=== PATIENT | male | born 1940 | race Caucasian/White ===

== ENCOUNTER 2016-12-10 13:36 | Emergency (ER) | payer OTHER ==
[~2016-12-10] VITALS: Ht 172.7 cm; Wt 68.6 kg
[~2016-12-10 13:36] MED LIST: LISI5TAB3 PO
[2016-12-10 13:44] VITALS: TEMP 36.7; Ht 172.7 cm; Wt 68.6 kg
--- NOTE | 2016-12-10 14:05 | EMERGENCY ROOM VISIT NOTE ---
ED Visit Note First contact with patient: 13:50 I have seen and examined this patient with Krishna Albrecht and generally agree with the treatment plan as discussed. Problem List Medical Problems: (1) Prostate disease Status: Chronic Current/Historical Medications Scheduled Lisinopril (Zestril), 5 MG PO DAILY Allergies Coded Allergies: No Known Allergies (Unverified , 04/22/16) Vital Signs Date Time Temp Pulse Resp B/P (MAP) Pulse Ox O2 Delivery O2 Flow Rate FiO2 12/10/16 13:44 36.7 71 20 162/91 95 Room Air Departure Information Referrals Shayy Jenkins M.D. (PCP) Patient Instructions My [facility]
--- NOTE | 2016-12-10 14:18 | DIAGNOSTIC IMAGING REPORT ---
RIGHT THIRD FINGER 3 VIEWS CLINICAL HISTORY: Finger pain COMPARISON: None. DISCUSSION: No fractures or dislocations are visualized. There are no erosive or destructive changes. IMPRESSION: No fractures, dislocations, or erosive/destructive lesions are visualized Electronically signed by: Sandeep Judge M.D. 12/10/2016 2:17 PM Dictated Date/Time: 12/10/2016 2:16 PM
--- NOTE | 2016-12-10 14:30 | EMERGENCY ROOM VISIT NOTE ---
History First contact with patient: 13:50 Chief Complaint: HAND PAIN/INJURY Stated Complaint: PAIN IN KNUCKLE - RT MIDDLE FINGER History of Present Illness The patient is a 76 year old male who presents to the Emergency Room via private vehicle with complaints of "pain and knuckle, right middle finger". The patient states that about 3 weeks ago, he was lifting a jug of milk, a when his right third digit at the level of the knuckle. Experiencing dislocation of the tendon. The patient states his been doing this periodically since that time. He notes that yesterday and today the pain has worsened and now there is erythema and edema. He rates the pain as a 1/10. Review of Systems A complete 6-point Review of Systems was discussed with the patient, with pertinent positives and negatives listed in the History of Present Illness. All remaining Review of Systems questions can be considered negative unless otherwise specified. Past Medical/Surgical History Medical Problems: (1) Prostate disease Family History No pertinent family history Social History Smoking Status: Never Smoker Marital Status: Housing Status: lives with family Current/Historical Medications No Active Prescriptions or Reported Meds Physical Exam Vital Signs Date Time Temp Pulse Resp B/P (MAP) Pulse Ox O2 Delivery O2 Flow Rate FiO2 12/10/16 15:11 88 20 136/80 99 12/10/16 13:44 36.7 71 20 162/91 95 Room Air Physical Exam VITAL SIGNS - Vital signs and nursing notes were reviewed. Stable. GENERAL - 76-year-old male appearing his stated age who is in no acute distress. Communicates well with provider and answers questions appropriately. SKIN - Without rashes. There is slight erythema overlying the dorsal aspect of the right third MCP joint. EXTREMITIES - No clubbing or peripheral cyanosis. No pretibial edema present. He is neurovascularly intact in this region. Upon Flexion of the patient's right third digit at the location of the MCP joint, the tendon appears to roll over the side of the knuckle. +5/5 strength noted in UE/LE bilaterally. Medical Decision & Procedures ER Provider Diagnostic Interpretation: RIGHT THIRD FINGER 3 VIEWS CLINICAL HISTORY: Finger pain COMPARISON: None. DISCUSSION: No fractures or dislocations are visualized. There are no erosive or destructive changes. IMPRESSION: No fractures, dislocations, or erosive/destructive lesions are visualized Electronically signed by: Sandeep Judge M.D. 12/10/2016 2:17 PM Dictated Date/Time: 12/10/2016 2:16 PM Medical Decision Patient was seen and evaluated as above. He presents to us today with right hand pain status post lifting a milk 3 weeks ago. It appears that his right third digit at the location of the MCP joint has a tendon will dislocate with extreme flexion. There is no evidence of infection. He is afebrile. He was fitted with a Ortho-Glass volar splint that protects and spans the right third MCP joint. He appears stable for discharge. He was also evaluated by the attending physician. He was given the phone number to follow-up with Dr. Morales the on-call orthopedic surgeon. He was educated upon worrisome symptoms which to return, had questions about discharge, and was discharged home in good condition. In the evaluation and treatment of this patient the following differential diagnoses were entertained: Dislocation, fracture, tendon injury, among others. Medication Reconcilliation Current Medication List: was personally reviewed by tx Blood Pressure Screening Patient's blood pressure: Elevated blood pressure Blood pressure disposition: Elevated BP felt to be situational Impression Primary Impression: right 3rd mcp joint pain Departure Information Dispostion Home / Self-Care Condition GOOD Prescriptions No Active Prescriptions or Reported Meds Referrals Shayy Jenkins M.D. (PCP) Jack Morales M.D. Patient Instructions My [facility] Additional Instructions You have been treated in the Emergency Department for 3rd knuckle Pain. If this is a recent injury (<24 hrs), ice can be applied to the area of pain for the first 3 days to help decrease pain and inflammation. You have been provided the number for an Orthopaedic Surgeon. You should call this number as soon as possible to establish a follow-up visit from today's Emergency Department visit. Keep the brace/splint in place until evaluated by Orthopedics. Return to the Emergency Department if your current symptoms worsen despite treatment course outlined above, or if you develop any of the following symptoms : intractable pain despite aforementioned treatment course or new onset of numbness or tingling of the fingers. Please return to emergency department with any new/concerning symptoms.
[2016-12-10 15:11] VITALS: BP 136/80; PULSE 88; O2SAT 99
== END 2016-12-10 15:13 | disposition home or self-care (01) ==
LOC: C.EDB 13:37 → C.EDD 15:13
DX: M79.644 Pain in right finger(s) (principal)

== ENCOUNTER 2020-02-28 08:32 | Observation (INO) ==
--- OUTSIDE RECORDS SUMMARY | 2020-02-28 08:35 | External Medical Summary | Continuity of Care Document ---
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) Hyperlipidemia (272.4) (E78.5) Hypertension (401.9) (I10) Allergies and Adverse Reactions No Known Drug Allergies (Allergy) Medications Medications not documented Procedures History of Biopsy Skin Status: Completed Immunizations Immunizations not documented Family History Mother No pertinent family history (V49.89) (Z78.9) Status: Active Father No pertinent family history (V49.89) (Z78.9) Status: Active Social History - Smoking Status Never smoked tobacco Plan of Treatment Planned Observations Planned Goals not documented Results No Known Results Results not documented Encounters Appointment; Med SC[facility], Nursing Station 03-Jan-2018 15:30 Encounter Diagnosis: Problem not documented
--- OUTSIDE RECORDS SUMMARY | 2020-02-28 08:36 | External Medical Summary | Continuity of Care Document ---
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
[2020-02-28] MEDS ORDERED: AMPICILLIN/SULBACTAM SOD 3,000 MG in 0.9 % SODIUM CHLORIDE 100 ML IV STA (09:01)
--- NOTE | 2020-02-28 09:07 | Emergency Department Note ---
History of Present Illness General Chief complaint: Hand Injury/Pain Stated complaint: HIT TOP OF RT HAND, SWELLING/REDNESS Time Seen by Provider: 02/28/20 08:50 History of Present Illness Provider complaint: Right hand pain Onset (ago): day(s) 4 Location: upper extremity and right Radiation: non-radiation Severity: moderate Pain Consistency: + constant Maximum Pain Intensity: 8 Current Pain Intensity: 9 Quality: + other (Throbbing) Relieved By: + immobilization Exacerbated By: + movement Associated symptoms: + rash; no fever/chills and no weakness 79-year-old male presents emergency department for right hand pain. Patient states that on Sunday evening he was playing with his dog with a Frisbee and accidentally hit his dog in the mouth with his right hand while throwing a Frisbee. He states he started bleeding profusely from his hand and he washed it out. He states over the last 3 days he had noticed increasing pain, swelling, and redness. He states the dog's immunizations are up-to-date. No fevers. Patient is not diabetic. Pain is worsened with movement and better when he keeps it still. Patient states his tetanus is up-to-date. Home Medications Home Medications Medication Instructions Recorded Confirmed Type No Known Home Medications 02/28/20 02/28/20 History Allergies Allergy/AdvReac Type Severity Reaction Status Date / Time No Known Allergies Allergy Unverified 02/28/20 09:26 Past Med/Surg History Medical History (Updated 02/28/20 @ 11:44 by Raffi Keith) Colonic diverticular abscess Diverticulitis No pertinent family history Prostate disease Surgical History (Updated 02/28/20 @ 11:34 by Dillon Morley PA-C) H/O abdominal surgery H/O meniscectomy of right knee Social History (Updated 02/28/20 @ 11:37 by Dillon Morley PA-C) Smoking Status: Former smoker Hx Alcohol Use: No Hx Substance Use: No Preferred Language: Romansh Communication Ability: Effective 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 Required: No current occupational status: retired 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 [employer] Feels Safe at Home: Yes Seatbelt Use: always Review of Systems A total of 10 systems reviewed and were otherwise negative Physical Exam Vital Signs Vital Signs - 24 hr 10/10/20 08:43 02/28/20 10:01 Temperature 37 C Temperature Source Oral Pulse Rate 71 Pulse Rate [Left Finger] 64 Pulse Rhythm Regular Pulse Strength Normal Respiratory Rate 18 18 Respiratory Effort / Characteristics Non-Labored Spontaneous Respiratory Depth Normal Respiratory Pattern Regular Blood Pressure 195/99 H Blood Pressure [Left Arm] 159/92 H Blood Pressure Mean 131 Blood Pressure Mean [Left Arm] 114 Blood Pressure Position Sitting Pulse Oximetry 97 97 Oxygen Delivery Method Room Air Room Air Sepsis Recent Fever Within 48 Hours No Sepsis New/Unexplained Change in Mental Status No Sepsis Action Taken by Nursing No Action Required Physical Exam GENERAL: He is oriented to person, place, and time. He appears well-developed and well-nourished. He does not appear distressed. HENT: Exam performed. - Head: Normocephalic and atraumatic. - Right Ear: External ear normal. No mastoid tenderness. - Left Ear: External ear normal. No mastoid tenderness. - Mouth/Throat: The oropharynx is clear and moist. No trismus in the jaw. No dental abscesses or uvula swelling. No oropharyngeal exudate or tonsillar abscesses. EYES: Conjunctivae and EOM are normal. Pupils are equal, round, and reactive to light. Right eye exhibits no discharge. Left eye exhibits no discharge. No scler al icterus. NECK: Normal range of motion. Neck supple. No JVD present. No spinous process tenderness present. No carotid bruit present. No rigidity. No tracheal deviation and normal range of motion present. No Brudzinski's sign and no Kernig's sign noted. CV: Normal rate, regular rhythm, normal heart sounds and intact distal pulses. There is no peripheral edema. Palpable radial pulses bue. PULM/CHEST: Effort normal and breath sounds normal. No respiratory distress. No stridor. He has no wheezes. He has no rales. - Chest Wall: He exhibits no tenderness. ABD: The abdomen is soft. Bowel sounds are normal. He has no distension. No mass is present. There is no tenderness. There is no rebound, no guarding, no Saldivar's sign and no tenderness at McBurney's point. Rovsig negative. MUSC/SKEL: Right upper extremity: Abrasions over the dorsum of the right hand and middle finger. No purulent discharge or bleeding. No fluctuant areas. Swelling over the dorsum of the right hand. Erythema and warmth over the dorsum of the right hand. Pain with extension of the right wrist. No pain over the flexor tendons. No pain with flexion of the wrist. Motor and sensation intact in the median, r adial, and ulnar nerve distribution. Palpable radial and ulnar pulse. Capillary refill less than 2 seconds. Compartments soft. Left upper extremity: Within normal limits. LYMPH: No cervical adenopathy. NEURO: He is alert and oriented to person, place, and time. He has normal strength. No cranial nerve deficit or sensory deficit. Coordination and gait normal. GCS eye subscore is 4. GCS verbal subscore is 5. GCS motor subscore is 6. Cerebellar tests wnl. SKIN: Skin is warm and dry. He is not diaphoretic. PSYCH: He has a normal mood and affect. Behavior is normal. Judgment and thought content normal. Male Course Course 0850: The patient was evaluated in room A10. A complete history and physical exam was performed. 1009: Vital signs stable. Patient has a white count of 13.46. Discussed with hand surgery on-call Dr. Carr who recommends that the patient be admitted to the hospital service and he will evaluate the patient as a consult. First dose of Unasyn given. Administered Medications Discontinued Medications Ampicillin Sodium/Sulbactam Sodium 3,000 mg/ Sodium Chloride 108 mls @ 200 mls/hr IV NOW STA; Protocol Stop: 02/28/20 09:33 Last Infusion: 02/28/20 10:41 Dose: 0 mls/hr Documented by: [id number] Admin: 02/28/20 09:40 Dose: 200 mls/hr Documented by: [id number] Ketorolac Tromethamine (Ketorolac Tromethamine 15 Mg/Ml Vial) 15 mg IV NOW STA Stop: 02/28/20 09:41 Last Admin: 02/28/20 09:44 Dose: 15 mg Documented by: [id number] Medical Decision Making Laboratory Data Result diagrams: 02/28/20 09:42 02/28/20 09:42 Lab Results 02/28/20 02/28/20 Range/Units 09:42 09:42 WBC 13.46 H (4.8-10.8) K/uL RBC 5.67 (4.7-6.1) M/uL Hgb 16.7 (14.0-18.0) g/dL Hct 50.5 (42-52) % MCV 89.1 (80-100) fL MCH 29.5 (25-34) pg MCHC 33.1 (32-36) g/dL RDW Std Deviation 46.0 (36.4-46.3) fL RDW Coeff of Ana 14.0 (11.5-14.5) % Plt Count 182 (130-400) K/uL MPV 10.5 H (7.4-10.4) fL Immature Gran % (Auto) 0.2 % Neut % (Auto) 79.6 % Lymph % (Auto) 7.1 % [place] % (Auto) 12.4 % Eos % (Auto) 0.5 % Baso % (Auto) 0.2 % Neut # (Auto) 10.70 H (1.4-6.5) K/uL Lymph # (Auto) 0.96 L (1.2-3.4) K/uL [place] # (Auto) 1.67 H (0.11-0.59) K/uL Eos # (Auto) 0.07 (0-0.5) K/uL Baso # (Auto) 0.03 (0-0.2) K/uL Immature Gran # (Auto) 0.03 H (0.00-0.02) K/uL Sodium 141 (136-145) mmol/L Potassium 4.5 (3.5-5.1) mmol/L Chloride 109 H (98-107) mmol/L Carbon Dioxide 29 (21-32) mmol/L Anion Gap 3.0 (3-11) BUN 20 H (7-18) mg/dl Creatinine 1.50 H (0.6-1.4) mg/dl Est Cr Clr Drug Dosing 37.4 ml/min Est GFR ( Amer) 49.9 Est GFR (Non-Af Amer) 43.0 BUN/Creatinine Ratio 13.4 (10-20) Glucose 111 H (70-99) mg/dl Calcium 9.1 (8.5-10.1) mg/dl Imaging Data Radiologist's Impression: XR hand RT min 3V routine CLINICAL HISTORY: bit by dog pain over dorsum of hand COMPARISON: Right third finger radiographs December 10, 2016. FINDINGS: No acute fracture is noted. Alignment of the right hand is anatomic. There is dorsal soft tissue swelling overlying the intercarpal. 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 IMPRESSION: 1. No acute fracture. 2. Dorsal right hand soft tissue swelling. ACT 112: Negative or not required by law. Electronically signed by: Nam Amezcua M.D. 02/28/2020 9:35 AM Dictated: 02/28/20932 Transcribed: 02/28/20932 [facility] Narrative Vital signs stable. Patient has a white count of 13.46. Discussed with hand surgery on-call Dr. Carr who recommends that the patient be admitted to the hospital service and he will evaluate the patient as a consult. First dose of Unasyn given. Impression & Plan Cellulitis of right hand Discharge Plan Visit Data Chief Complaint: Hand Injury/Pain Stated Complaint: HIT TOP OF RT HAND, SWELLING/REDNESS ED Provider: Raffi Keith Discharge Problem: Cellulitis of right hand Patient Disposition: Being Evaluated by Hospitalist Forms Stand Alone Forms: [employer] Prescriptions Prescriptions: No Action No Known Home Medications RF: 0 Referrals Referrals: Shayy Jenkins [Primary Care Provider] -
--- NOTE | 2020-02-28 09:36 | XRay Report ---
XR hand RT min 3V routine CLINICAL HISTORY: bit by dog pain over dorsum of hand COMPARISON: Right third finger radiographs December 10, 2016. FINDINGS: No acute fracture is noted. Alignment of the right hand is anatomic. There is dorsal soft tissue swelling overlying the intercarpal. 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 IMPRESSION: 1. No acute fracture. 2. Dorsal right hand soft tissue swelling. ACT 112: Negative or not required by law. Electronically signed by: Nam Amezcua M.D. 02/28/2020 9:35 AM
[2020-02-28] MEDS ORDERED: KETOROLAC TROMETHAMINE 15 MG/ML VIAL IV STA (09:40)
[2020-02-28 09:53] LABS: Basophils # (auto) 0.03 K/uL (0-0.2); Basophils % (auto) 0.2 %; Eosinophils # (auto) 0.07 K/uL (0-0.5); Eosinophils % (auto) 0.5 %; Hematocrit (blood only) 50.5 % (42-52); Hemoglobin 16.7 g/dL (14.0-18.0); Immature Granulocytes # (auto) 0.03 K/uL (0.00-0.02); Immature Granulocytes % (auto) 0.2 %; Lymphocytes # (auto) 0.96 K/uL (1.2-3.4); Lymphocytes % (auto) 7.1 %; Mean Corpuscular Hemoglobin 29.5 pg (25-34); Mean Corpuscular Hgb Conc 33.1 g/dL (32-36); Mean Corpuscular Volume 89.1 fL (80-100); Mean Platelet Volume 10.5 fL (7.4-10.4); Monocytes # (auto) 1.67 K/uL (0.11-0.59); Monocytes % (auto) 12.4 %; Neutrophils % (auto) 79.6 %; Platelet Count 182 K/uL (130-400); Red Blood Count 5.67 M/uL (4.7-6.1); White Blood Count 13.46 K/uL (4.8-10.8)
[2020-02-28 10:14] LABS: BUN Creatinine Ratio 13.4 (10-20); Calcium 9.1 mg/dl (8.5-10.1); Creatinine Clr Calc Pharmacy 37.4 ml/min; Est GFR (African American) 49.9; Potassium 4.5 mmol/L (3.5-5.1)
[2020-02-28] MEDS ORDERED: traMADol HCL 50 MG TABLET PO PRN (11:12)
[2020-02-28] MEDS ORDERED: oxyCODONE HCL IR 5 MG TAB (IMMEDIATE RELEASE) PO PRN (11:14)
[2020-02-28] MEDS ORDERED: LORazepam 1 MG TAB PO PRN (11:15)
[2020-02-28] MEDS ORDERED: MAGNESIUM HYDROXIDE SUSP 30 ML UDC PO PRN (11:16)
[2020-02-28] MEDS ORDERED: CALCIUM CARBONATE 500 MG CHEWABLE TAB PO PRN (11:17)
[2020-02-28] MEDS ORDERED: ACETAMINOPHEN 500 MG TAB PO PRN (11:29)
[2020-02-28] MEDS ORDERED: hydrALAZINE HCL 20 MG/ML VIAL IV PRN (11:43)
--- NOTE | 2020-02-28 11:43 | History & Physical Report ---
Date of Service February 28, 2020 Assessment & Plan (1) Cellulitis of right hand: Mr. Rodriguez is an 79 year old male with a history of Osteoarthritis, Diverticulitis with Perforation s/p Partial Colectomy in the past, and BPH who presents to the ER with a painful, swollen right hand which began last evening. Patient was playing with his dog on the evening of 02/25/2020 and when he went to throw the frisbee he accidently hit his dog in the mouth resulting in essentially a bite wound. On the evening of 02/27/2020 his right hand became more swollen and erythematous. The erythema then began to extend on his dorsal right hand and up the forearm, and became more painful. He denies any fever or chills but his WBC count is elevated at 13.46 K/uL. -- Admit to Med-Surg floor. -- X-rays of affected extremity have been completed. -- Received Unasyn 3 g IV in the ER. -- Continue IV Unasyn 3 g Q6H. -- IV NSS with 20 mEq KCL at 15 ml/hr. -- Daily CBC with diff. -- Daily BMP. -- If necessary will consult Dr. Carr. (2) Dog bite of extremity: -- Not bitten by dog, accidently hit dog in the mouth with right while throwing the frisbee. -- Dog is up to date on its shots. (3) Elevated BP without diagnosis of hypertension: -- Routine monitoring of vital signs. -- IV Hydralazine 10 mg as needed for SBP > 160 mmHg. History of Present Illness Mr. Rodriguez is an 79 year old male with a history of Osteoarthritis, Diverticulitis with Perforation s/p Partial Colectomy in the past, and BPH who presents to the ER with a painful, swollen right hand which began last evening. Patient was playing with his dog on the evening of 02/25/2020 and when he went to throw the frisbee he accidently hit his dog in the mouth resulting in essentially a bite wound. On the evening of 02/27/2020 his right hand became more swollen and erythematous. The erythema then began to extend on his dorsal right hand and up the forearm, and became more painful. He denies any fever or chills but his WBC count is elevated at 13.46 K/uL. Patient received at dose of Unasyn 3 g and Toradol 15 mg in the ER. X-rays of the right hand are negative for fracture, but soft tissue edema of the dorsal right hand is present. His dog is up to date with its shots, and is NOT rabid. Primary Care Provider: Shayy Jenkins Allergies Allergy/AdvReac Type Severity Reaction Status Date / Time No Known Allergies Allergy Unverified 02/28/20 09:26 Home Medications Home Medications Medication Instructions Recorded Confirmed Type No Known Home Medications 02/28/20 02/28/20 History amoxicillin-pot clavulanate 1 tab PO BID #20 tab 02/29/20 Rx [Augmentin] Past Med/Surg History Medical History Colonic diverticular abscess Diverticulitis No pertinent family history Prostate disease Surgical History H/O abdominal surgery H/O meniscectomy of right knee Social History Smoking Status: Never smoker Hx Alcohol Use: Yes Hx Substance Use: No Preferred Language: Irish Communication Ability: Effective Agricultural Mechanic Required: No Current Living Situation: Spouse current occupational status: retired 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 HEENT: Head is atraumatic, normocephalic. EOM's intact. Nasal septal deviation is present. No perioral cyanosis. NECK: No JVD. JVP is at the level of the clavicle sitting upright. Carotid upstrokes are + 2 bilaterally. No bruits are noted. CHEST/LUNGS: Mildly diminished breath sounds throughout but clear to auscultation. No wheezes, rales, or crackles. CVS: S1 and S2 are regular without obvious murmurs, gallops, or rubs. PMI is nondisplaced. No lifts, heaves, or thrills. No abdominal aortic or renal bruits. ABDOMINAL EXAM: Bowel sounds are present. No masses, organomegaly, or tenderness. EXTREMITIES: Dorsal right hand is erythematous and edematous, open area on the right digiti annularis. Erythema extends onto dorsal right forearm, and has been outlined in marker by ER staff. Right wrist, elbow, and fingers with full AROM. No clubbing or cyanosis. Intact posterior tibial and radial pulses bilaterally. NEUROLOGIC EXAM: Patient is awake, alert, and oriented. Pleasant and cooperative. Answers questions appropriately. Speech is clear. Normal movement in all 4 extremities. Results & Data Results & Data ([facility]) Vital Signs (Past 12 Hours) Vital Signs Temp Pulse Pulse Resp BP BP Pulse Ox 02/28/20 10:01 64 18 159/92 H 97 02/28/20 08:43 37 C 71 18 195/99 H 97 Laboratory Results Laboratory Results - last 24 hr 02/28/20 02/28/20 09:42 09:42 WBC 13.46 H RBC 5.67 Hgb 16.7 Hct 50.5 MCV 89.1 MCH 29.5 MCHC 33.1 RDW Std Deviation 46.0 RDW Coeff of Ana 14.0 Plt Count 182 MPV 10.5 H Immature Gran % (Auto) 0.2 Neut % (Auto) 79.6 Lymph % (Auto) 7.1 Cole % (Auto) 12.4 Eos % (Auto) 0.5 Baso % (Auto) 0.2 Neut # (Auto) 10.70 H Lymph # (Auto) 0.96 L Cole # (Auto) 1.67 H Eos # (Auto) 0.07 Baso # (Auto) 0.03 Immature Gran # (Auto) 0.03 H Sodium 141 Potassium 4.5 Chloride 109 H Carbon Dioxide 29 Anion Gap 3.0 BUN 20 H Creatinine 1.50 H Est Cr Clr Drug Dosing 37.4 Est GFR ( Amer) 49.9 Est GFR (Non-Af Amer) 43.0 BUN/Creatinine Ratio 13.4 Glucose 111 H Calcium 9.1 Medications Administered Active Medications Generic Name Dose Route Start Last Admin Trade Name Freq PRN Reason Stop Dose Admin Acetaminophen 1,000 mg 02/28/20 11:29 Acetaminophen 500 Mg Tab PO 03/29/20 11:28 Q8H PRN Fever or headache Calcium Carbonate 1,500 mg 02/28/20 11:17 Calcium Carbonate 500 Mg Chewable Tab PO 03/29/20 11:16 Q4H PRN Indigestion Potassium Chloride/Sodium Chloride 20 meq in 1,000 mls @ 0 mls/hr 02/28/20 11:15 Normal Saline W/20 Meq Kcl IV 03/29/20 11:14 .Q0M LUCERO Protocol KVO Ampicillin Sodium/Sulbactam 108 mls @ 200 mls/hr 02/28/20 11:15 Sodium 3,000 mg/ Sodium IV 03/06/20 11:14 Chloride Q6H LUCERO Protocol Lorazepam 1 mg 02/28/20 11:15 Lorazepam 1 Mg Tab PO 03/29/20 11:14 Q8H PRN Agitation or sleep Magnesium Hydroxide 30 ml 02/28/20 11:16 Magnesium Hydroxide Susp 30 Ml Udc PO 03/29/20 11:15 Q6H PRN Constipation Ondansetron HCl 4 mg 02/28/20 11:30 Ondansetron Inj 2 Mg/Ml 2 Ml Vial IV 03/29/20 11:29 Q6H LUCERO Oxycodone HCl 5 mg 02/28/20 11:14 Oxycodone Hcl Ir 5 Mg Tab (Immediate Release) PO 03/13/20 11:13 Q4H PRN Pain Tramadol HCl 50 mg 02/28/20 11:12 Tramadol Hcl 50 Mg Tablet PO 03/29/20 11:14 Q6H PRN Pain Code Status & VTE Plan VTE Prophylaxis Plan VTE Prophylaxis will be ordered: Yes Supervising Physician Co-Signing Physician Notes During my face to face encounter with the patient, I obtained a physical and history. I reviewed above note and discussed case with the [facility] Dillon Morley. Patient will be admitted for a dog bite wound, will continue on IV antibiotics. Will discuss case with ortho. PG Care Time/CCT Total # of Minutes Spent Total Time Spent with Patient: Total time spent is greater than 50% in coordination of care (as documented) at patient's floor/unit and/or counseling patient:50 Coding Level of Care Code 91273 Initial Inpt Care Lvl 3 Diagnoses Cellulitis of right hand L03.113 Dog bite of extremity Elevated BP without diagnosis of hypertension R03.0 Time Spent (min) 50
[2020-02-28] MEDS ORDERED: NSS + 20MEQ KCL 20 MEQ/1,000 ML BAG IV SCH ×2 (12:15→20:00)
--- NOTE | 2020-02-28 12:28 | Orthopedic Consultation ---
Date of Consultation February 28, 2020 Assessment & Plan (1) Cellulitis of right hand: x-rays reviewed and show no acute findings, he admits that the hand is feeling better already after initiation of Unasyn. will cont with IV Abx, ice/elevate for swelling, recheck labs in AM. at this point he is responding to the IV Abx and will cont with observation, will cont to monitor for increased, pain, swelling, increased redness or spreading up the forearm. (2) Dog bite of extremity: History of Present Illness Reason for Consultation: right hand cellulitis Attending Physician: Jake Copeland History of Present Illness 79-year-old male consulted for right hand cellulitis after a puncture wound from his dogs tooth, was throwing a frisbee and accidentally hit his dog in the mouth, this occurred on Sunday evening. It did bleed from the wound initially but was able to get it under control at home and washed out at home. however over the past 48 hours has noted increased pain, swelling and redness on the dorsum of his hand. He states that the dog's immunizations are up-to-date. he denies fever or chills. He admits that the pain has already improved since arriving in the ER and beginning treatment. Patient states his tetanus is up-to-date. Allergies Allergy/AdvReac Type Severity Reaction Status Date / Time No Known Allergies Allergy Unverified 02/28/20 09:26 Home Medications Home Medications Medication Instructions Recorded Confirmed Type No Known Home Medications 02/28/20 02/28/20 History Patient History Medical History Colonic diverticular abscess Diverticulitis No pertinent family history Prostate disease Surgical History H/O abdominal surgery H/O meniscectomy of right knee Social History Smoking Status: Former smoker Hx Alcohol Use: No Hx Substance Use: No Preferred Language: Italian Communication Ability: Effective Nursing Services Manager Required: No current occupational status: retired 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 [employer] Feels Safe at Home: Yes Seatbelt Use: always Review of Systems Constitutional: as per Subjective / HPI; no fever and no chills Respiratory: no cough and no dyspnea Cardiovascular: no chest pain, no dyspnea and no orthopnea Gastrointestinal: no nausea and no vomiting Physical Exam Physical Exam: Vital Signs Temp 37 C 02/28/20 08:43 Pulse 64 02/28/20 10:01 Resp 18 02/28/20 10:01 BP 159/92 H 02/28/20 10:01 Pulse Ox 97 02/28/20 10:01 Intake & Output 02/27/20 02/28/20 02/28/20 18:59 06:59 18:59 Intake Total 108 / 108 Balance 108 / 108 Weight 76.1 kg Intake: IV 108 / 108 Unasyn 3,000 m g In Sodium 108 / 108 Chloride 100 m l @ 200 mls/hr IV NOW STA Rx#:[id number] Other: Weight Measureme nt Method Chair Scale Constitutional: WD/WN, vitals as above well developed and well nourished; no acute distress Musculoskeletal: Right upper extremity: he has what appears to be 3 small puncture wounds dorsum hand around the midshaft 3rd metacarpal as well as an abrasion extensor surface middle finger proximal phalanx. no active drainage noted. no other discharge or bleeding is noted. there is swelling as well as mild erythema noted over the dorsum of the hand, extends to just distal to the wrist crease, he has no pain with gentle active and passive ROM of the wrist, some discomfort noted with active extension of the 3rd and 4th digits. no pain with gentle flexion of the digits but pain with making a fist. otherwise motor and sensation intact, radial pulse +2. CR less than 2 seconds. forearm is soft non tender. Results & Data ([facility]) Vital Signs (Past 12 Hours) Vital Signs Temp Pulse Pulse Resp BP BP Pulse Ox 02/28/20 10:01 64 18 159/92 H 97 02/28/20 08:43 37 C 71 18 195/99 H 97 Laboratory Results Laboratory Results WBC 13.46 K/uL (4.8-10.8) H 02/28/20 09:42 RBC 5.67 M/uL (4.7-6.1) 02/28/20 09:42 Hgb 16.7 g/dL (14.0-18.0) 02/28/20 09:42 Hct 50.5 % (42-52) 02/28/20 09:42 MCV 89.1 fL (80-100) 02/28/20 09:42 MCH 29.5 pg (25-34) 02/28/20 09:42 MCHC 33.1 g/dL (32-36) 02/28/20 09:42 RDW Std Deviation 46.0 fL (36.4-46.3) 02/28/20 09:42 RDW Coeff of Ana 14.0 % (11.5-14.5) 02/28/20 09:42 Plt Count 182 K/uL (130-400) 02/28/20 09:42 MPV 10.5 fL (7.4-10.4) H 02/28/20 09:42 Immature Gran % (Auto) 0.2 % 02/28/20 09:42 Neut % (Auto) 79.6 % 02/28/20 09:42 Lymph % (Auto) 7.1 % 02/28/20 09:42 Alexander % (Auto) 12.4 % 02/28/20 09:42 Eos % (Auto) 0.5 % 02/28/20 09:42 Baso % (Auto) 0.2 % 02/28/20 09:42 Neut # (Auto) 10.70 K/uL (1.4-6.5) H 02/28/20 09:42 Lymph # (Auto) 0.96 K/uL (1.2-3.4) L 02/28/20 09:42 Alexander # (Auto) 1.67 K/uL (0.11-0.59) H 02/28/20 09:42 Eos # (Auto) 0.07 K/uL (0-0.5) 02/28/20 09:42 Baso # (Auto) 0.03 K/uL (0-0.2) 02/28/20 09:42 Immature Gran # (Auto) 0.03 K/uL (0.00-0.02) H 02/28/20 09:42 Sodium 141 mmol/L (136-145) 02/28/20 09:42 Potassium 4.5 mmol/L (3.5-5.1) 02/28/20 09:42 Chloride 109 mmol/L (98-107) H 02/28/20 09:42 Carbon Dioxide 29 mmol/L (21-32) 02/28/20 09:42 Anion Gap 3.0 (3-11) 02/28/20 09:42 BUN 20 mg/dl (7-18) H 02/28/20 09:42 Creatinine 1.50 mg/dl (0.6-1.4) H 02/28/20 09:42 Est Cr Clr Drug Dosing 37.4 ml/min 02/28/20 09:42 Est GFR ( Amer) 49.9 02/28/20 09:42 Est GFR (Non-Af Amer) 43.0 02/28/20 09:42 BUN/Creatinine Ratio 13.4 (10-20) 02/28/20 09:42 Glucose 111 mg/dl (70-99) H 02/28/20 09:42 Calcium 9.1 mg/dl (8.5-10.1) 02/28/20 09:42 Diagnostic Findings XR hand RT min 3V routine CLINICAL HISTORY: bit by dog pain over dorsum of hand COMPARISON: Right third finger radiographs December 10, 2016. FINDINGS: No acute fracture is noted. Alignment of the right hand is anatomic. There is dorsal soft tissue swelling overlying the intercarpal. 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 IMPRESSION: 1. No acute fracture. 2. Dorsal right hand soft tissue swelling.
[2020-02-28] MEDS: ONDANSETRON INJ 2 MG/ML 2 ML VIAL IV SCH ×2 (13:16→18:28)
[2020-02-28] MEDS: AMPICILLIN/SULBACTAM SOD 3,000 MG in 0.9 % SODIUM CHLORIDE 100 ML IV SCH ×2 (15:42→21:19)
[2020-02-29] MEDS: ONDANSETRON INJ 2 MG/ML 2 ML VIAL IV SCH ×3 (01:53→12:39)
[2020-02-29] MEDS: AMPICILLIN/SULBACTAM SOD 3,000 MG in 0.9 % SODIUM CHLORIDE 100 ML IV SCH ×3 (04:21→15:18)
[2020-02-29 07:27] LABS: Basophils # (auto) 0.01 K/uL (0-0.2); Basophils % (auto) 0.1 %; Eosinophils # (auto) 0.18 K/uL (0-0.5); Eosinophils % (auto) 1.6 %; Hematocrit (blood only) 42.5 % (42-52); Hemoglobin 14.4 g/dL (14.0-18.0); Immature Granulocytes # (auto) 0.02 K/uL (0.00-0.02); Immature Granulocytes % (auto) 0.2 %; Lymphocytes # (auto) 1.57 K/uL (1.2-3.4); Lymphocytes % (auto) 13.9 %; Mean Corpuscular Hemoglobin 30.1 pg (25-34); Mean Corpuscular Hgb Conc 33.9 g/dL (32-36); Mean Corpuscular Volume 88.9 fL (80-100); Mean Platelet Volume 10.9 fL (7.4-10.4); Monocytes # (auto) 1.48 K/uL (0.11-0.59); Monocytes % (auto) 13.1 %; Neutrophils # (auto) 8.01 K/uL (1.4-6.5); Neutrophils % (auto) 71.1 %; Platelet Count 143 K/uL (130-400); RDW Coefficient of Variation 14.1 % (11.5-14.5); RDW Standard Deviation 45.9 fL (36.4-46.3); Red Blood Count 4.78 M/uL (4.7-6.1); White Blood Count 11.27 K/uL (4.8-10.8)
[2020-02-29 08:08] LABS: BUN Creatinine Ratio 16.2 (10-20); Calcium 8.5 mg/dl (8.5-10.1); Creatinine Clr Calc Pharmacy 40.8 ml/min; Est GFR (African American) 53.3; Potassium 4.2 mmol/L (3.5-5.1)
--- NOTE | 2020-03-07 21:24 | Discharge Summary ---
Date of Service February 29, 2020 Principal Diagnosis cellulitis of right hand Discharge Exam GENERAL: Patient in no acute distress. HEENT: Head is atraumatic, normocephalic. EOM's intact. Nasal septal deviation is present. No perioral cyanosis. NECK: No JVD. JVP is at the level of the clavicle sitting upright. Carotid upstrokes are + 2 bilaterally. No bruits are noted. CHEST/LUNGS: Mildly diminished breath sounds throughout but clear to auscultation. No wheezes, rales, or crackles. CVS: S1 and S2 are regular without obvious murmurs, gallops, or rubs. PMI is nondisplaced. No lifts, heaves, or thrills. No abdominal aortic or renal bruits. ABDOMINAL EXAM: Bowel sounds are present. No masses, organomegaly, or tenderness. EXTREMITIES: Dorsal right hand : decreased erythema and edema, open area on the right digiti annularis. Right wrist, elbow, and fingers with full AROM. No clubbing or cyanosis. Intact posterior tibial and radial pulses bilaterally. NEUROLOGIC EXAM: Patient is awake, alert, and oriented. Pleasant and cooperative. Answers questions appropriately. Speech is clear. Normal movement in all 4 extremities. Discharge Data Allergies Allergy/AdvReac Type Severity Reaction Status Date / Time No Known Allergies Allergy Unverified 02/28/20 09:26 Consultations 02/28/20 10:31 ED Decision to Admit Stat Hospital Course (1) Cellulitis of right hand: Mr. Rodriguez is an 79 year old male with a history of Osteoarthritis, Diverticulitis with Perforation s/p Partial Colectomy in the past, and BPH who presents to the ER with a painful, swollen right hand which began last evening. Patient was playing with his dog on the evening of 02/25/2020 and when he went to throw the frisbee he accidently hit his dog in the mouth resulting in essentially a bite wound. On the evening of 02/27/2020 his right hand became more swollen and erythematous. The erythema then began to extend on his dorsal right hand and up the forearm, and became more painful. He denies any fever or chills but his WBC count is elevated at 13.46 K/uL. -- Admit to Med-Surg floor. -- X-rays of affected extremity have been completed. -- Received Unasyn 3 g IV in the ER. -- Continue IV Unasyn 3 g Q6H. on day 2 of hospital, Appreciate input from ortho: x-rays reviewed and show no acute findings, he admits that the hand is feeling better already after initiation of Unasyn. will cont with IV Abx, ice/elevate for swelling, recheck labs in AM. at this point he is responding to the IV Abx and will cont with observation, will cont to monitor for increased, pain, swelling, increased redness or spreading up the forearm. Erythema has improved, will discharge on oral antibiotics. (2) Dog bite of extremity: -- Not bitten by dog, accidently hit dog in the mouth with right while throwing the frisbee. -- Dog is up to date on its shots. (3) Elevated BP without diagnosis of hypertension: -- Routine monitoring of vital signs. Bp better controlled. --will defer fUrther management to PCP. Total Time Total Time Spent Total Time Spent (In Minutes): 32 Total Time Includes: Examination of the Patient, Discharge Planning and Medication Reconciliation Discharge Plan Discharge Items Patient Disposition: Home - Self-Care Reason For Visit: CELLULITIS Discharge Diagnosis: cellulitis Activity: Resume your previous activity Non-emergency contact: Primary Care Provider Call non-emergency contact if: you have any medication questions Follow-up/Referrals: Shayy Jenkins [Primary Care Provider] - Diet: Regular Addtl Attending Provider Instructions: You have been hospitalized for an acute medical problem. During your stay at [facility], we have made an effort to correct the problem that brought you to the hospital while keeping you as comfortable as possible. Medications were used to bring your condition under control and your discharge instructions will include directions for any medications you should take after leaving the hospital. Please make sure you see your Primary Care Provider as part of your follow up plan. Pending Studies at Discharge: No Stand-Alone Forms: [facility], Smoking Cessation Medications and DC Order Prescriptions: New amoxicillin-pot clavulanate [Augmentin] 875-125 mg tablet 1 tab PO BID Qty: 20 RF: 0 No Action No Known Home Medications RF: 0 Discharge Orders: Discharge Order (Routine); Ordered 02/29/20 Ordered By: Jake Hopkins/Other Patient Handouts: Discharge Instructions for Cellulitis Admission Data Admit Date/Time: 02/28/20 10:58 Attending Provider: Jake Copeland Admit Provider: Jake Copeland Primary Care Provider: Shayy Jenkins Other Providers: Jeremy Valencia ; Dillon Morley Other Interventions: Discharge Summary Assessment (RN) Last Done: 02/29/20 14:41 Coding Level of Care Code 26667 OBS Care - Discharge Diagnoses Cellulitis of right hand L03.113 Dog bite of extremity Elevated BP without diagnosis of hypertension R03.0
== END 2020-02-29 16:36 | disposition home or self-care (01) ==
LOC: ED 08:32 → INTOOBSV 10:58 → 3W 10:58